=== PATIENT | female | born 1980 | race African-American/Black ===

== ENCOUNTER 2017-12-23 22:17 | Emergency (ER) | payer MEDICAID, OTHER ==
[~2017-12-23] VITALS: Ht 170.2 cm; Wt 116.1 kg
[2017-12-23 23:51] LABS: Urine Bacteria NONE SEEN /hpf (None Seen); Urine Blood Negative /uL (Negative); Urine Mucus FEW (None Seen); Urine WBC 1 /hpf (0 - 5)
[2017-12-23 23:53] LABS: INR 0.87 (0.9-1.15); Partial Thromboplastin Time 24.5 sec (23.78-33.04); Prothrombin Time 9.4 sec (9.27-12.13)
[2017-12-24] LABS: Chloride 108 mmol/L (98-107); Potassium 4.3 mmol/L (3.5-5.1); Sodium 140 mmol/L (136-145)
[2017-12-24 00:04] LABS: Albumin 2.6 g/dL (3.4-5.0); Amylase 99 U/L (25-115); Anion Gap 10 (5-15); BUN/Creatinine Ratio 9.8; Blood Urea Nitrogen 5 mg/dL (7-18); Calcium 7.9 mg/dL (8.5-10.1); Carbon Dioxide 22 mmol/L (21-32); GFR African American 174 mL/min; GFR Non-African American 143 mL/min; Glucose 81 mg/dL (74-106); Lipase 118 U/L (73-393); Magnesium 2.2 mg/dL (1.6-2.6)
[2017-12-24 00:09] LABS: Alanine Aminotransferase 18 U/L (13-56); Alkaline Phosphatase 63 U/L (45-117); Aspartate Aminotransferase 12 U/L (15-37); Bilirubin, Total 0.1 mg/dL (0.2-1.0); Total Protein 7.3 g/dL (6.4-8.2)
[2017-12-24] MEDS ORDERED: ACETAMINOPHEN 325 MG TAB PO ONE (04:45)
[2017-12-24 04:54] VITALS: BP 113/66
== END 2017-12-24 05:26 | disposition home or self-care (01) ==
LOC: ER 22:23
DX: O26.892 Other specified pregnancy related conditions, second trimester (principal); K43.9 Ventral hernia without obstruction or gangrene; J45.909 Unspecified asthma, uncomplicated; F17.210 Nicotine dependence, cigarettes, uncomplicated; Z3A.24 24 weeks gestation of pregnancy; Z90.49 Acquired absence of other specified parts of digestive tract
CPT/HCPCS: 36415; 76805; 80053; 81001; 82150; 83690; 83735; 84484; 84702; 85610; 85730